=== PATIENT | female | born 1975 | race Two or more races ===

== ENCOUNTER 2017-06-13 08:44 | Emergency (ER) | payer OTHER ==
[~2017-06-13] VITALS: Ht 162.6 cm; Wt 56.7 kg
--- NOTE | 2017-06-13 09:10 | NUR ---
SELF PRESENTS TO ER C/O LOW BACK / SCIATIC PAIN SINCE 1 AM TODAY. PATIENT A/OX 4. BREATHING EVEN AND UNLABORED. NO SOB. VITALS STABLE. SAFETY AND COMFORT MEASURES IN PLACE. AWAITING MD ORDERS.
[2017-06-13] MEDS ORDERED: DEXAMETHASONE SOD PHOSPHATE 4 MG/ML VIAL ONE (09:19)
[2017-06-13] MEDS ORDERED: KETOROLAC TROMETHAMINE INJ 30 MG/ML VIAL ONE (09:20)
--- NOTE | 2017-06-13 09:20 | NUR ---
PATIENT MEDICATED PER MD ORDERS.
[2017-06-13 09:29] VITALS: BP 106/62
[2017-06-13] MEDS ORDERED: KETOROLAC TROMETHAMINE INJ 60 MG/2 ML VIAL IM ONE (09:30)
[2017-06-13] MEDS ORDERED: DEXAMETHASONE SOD PHOSPHATE 4 MG/ML VIAL IM ONE (09:30)
--- NOTE | 2017-06-13 09:36 | NUR ---
Patient discharged to home in stable condition. Written and verbal after care instructions given. Patient verbalizes understanding of instruction.
== END 2017-06-13 09:36 | disposition home or self-care (01) ==
LOC: ER 08:47
DX: M54.42 Lumbago with sciatica, left side (principal)
CPT/HCPCS: 96372 ×2; 99284; A4606; J1100; J1885; Z7610